=== PATIENT | female | born 1990 | race African-American/Black ===

== ENCOUNTER 2018-09-21 00:43 | Emergency (ER) | payer MEDICAID ==
[~2018-09-21] VITALS: Ht 162.6 cm; Wt 100.0 kg
[2018-09-21 03:06] VITALS: BP 108/61
[2018-09-21 03:59] LABS: BASOPHILS % 0.7 % (0.0-2.0); EOSINOPHILS % 0.8 % (0.0-5.0); HEMATOCRIT. 35.7 % (36.0-48.0); HEMOGLOBIN. 10.9 g/dL (12.0-16.0); LYMPHOCYTES % 31.1 % (20.0-50.0); MEAN CORPUSCULAR VOLUME 71.9 fL (81.0-99.0); MEAN PLATELET VOLUME 8.5 fl (7.4-10.4); MONOCYTES % 4.9 % (2.0-8.0); NEUTROPHILS % 62.5 % (40.0-76.0); PLATELET 333 x1000/uL (130-400); RED BLOOD CELL COUNT 4.96 mill/uL (4.2-5.4); RED CELL DISTRIBUTION WIDTH 14.5 % (11.6-14.6)
[2018-09-21 04:05] LABS: CHLORIDE 112 mEq/L (98-107)
== END 2018-09-21 05:51 | disposition home or self-care (01) ==
LOC: ER 00:43
DX: R07.9 Chest pain, unspecified (principal); F32.9 Major depressive disorder, single episode, unspecified; F41.9 Anxiety disorder, unspecified
CPT/HCPCS: 36415; 71045; 84484; 93005; 99283

== ENCOUNTER 2019-03-28 23:19 | Emergency (ER) | payer MEDICAID ==
[~2019-03-28] VITALS: Ht 162.6 cm; Wt 105.0 kg
[2019-03-29] MEDS ORDERED: OLANZAPINE 5MG TABLET ODT PO ONE (00:15)
[2019-03-29] MEDS ORDERED: LORAZEPAM 1MG TABLET PO ONE (00:15)
[2019-03-29 00:33] LABS: BASOPHILS % 0.9 % (0.0-2.0); EOSINOPHILS % 2.5 % (0.0-5.0); HEMATOCRIT. 36.7 % (36.0-48.0); HEMOGLOBIN. 11.4 g/dL (12.0-16.0); LYMPHOCYTES % 26.9 % (20.0-50.0); MEAN CORPUSCULAR HEMOGLOBIN 22.3 pg (28.0-32.0); MEAN CORPUSCULAR VOLUME 71.7 fL (81.0-99.0); MEAN PLATELET VOLUME 8.2 fl (7.4-10.4); MONOCYTES % 7.2 % (2.0-8.0); NEUTROPHILS % 62.5 % (40.0-76.0); PLATELET 316 x1000/uL (130-400); RED BLOOD CELL COUNT 5.12 mill/uL (4.2-5.4); RED CELL DISTRIBUTION WIDTH 15.6 % (11.6-14.6)
[2019-03-29 00:38] LABS: CHLORIDE 107 mEq/L (98-107)
[2019-03-29 00:42] LABS: ETHANOL BLOOD < 10 mg/dL
[2019-03-29 00:45] LABS: HCG SCREEN NEGATIVE
[2019-03-29 01:31] LABS: CLARITY URINE CLOUDY (CLEAR); COLOR URINE YELLOW (YELLOW); KETONES URINE NEGATIVE (NEGATIVE); LEUKOCYTE ESTERASE URINE 1+ (NEGATIVE); NITRITE URINE NEGATIVE (NEGATIVE); OCCULT BLOOD URINE NEGATIVE (NEGATIVE); PH URINE 5.5 (4.5-8.0); PROTEIN URINE NEGATIVE (NEGATIVE); SPECIFIC GRAVITY URINE 1.011 (1.005-1.030); UROBILINOGEN URINE 0.2 E.U./dL (0.2-1.0)
[2019-03-29 01:41] LABS: *AMPHETAMINES SCREEN URINE NEGATIVE (NEGATIVE); *BARBITURATES SCREEN URINE NEGATIVE (NEGATIVE)
[2019-03-29 01:42] LABS: *BENZODIAZEPINES SCREEN URINE NEGATIVE (NEGATIVE); *COCAINE SCREEN URINE NEGATIVE (NEGATIVE); CANNABINOID URINE SCREEN NEGATIVE (NEGATIVE); METHADONE URINE SCREEN NEGATIVE (NEGATIVE); OPIATES URINE SCREEN NEGATIVE (NEGATIVE); PHENCYCLIDINE URINE SCREEN NEGATIVE (NEGATIVE)
[2019-03-29 09:05] VITALS: BP 117/59
== END 2019-03-29 10:31 | disposition home or self-care (01) ==
LOC: ER 23:19
DX: F32.9 Major depressive disorder, single episode, unspecified (principal); R45.851 Suicidal ideations; J45.909 Unspecified asthma, uncomplicated
CPT/HCPCS: 36415; 80305; 80307; 80320; 80329; 81003; 81025; 84703; 99284; G0480

== ENCOUNTER 2021-06-28 19:06 | Emergency (ER) | payer MEDICAID ==
[~2021-06-28] VITALS: Ht 167.6 cm; Wt 91.0 kg
[~2021-06-28 19:06] MED LIST: IBUP-2028 MT; SULF5DRO LEFTEYE
[2021-06-28] MEDS ORDERED: LORAZEPAM 1MG TABLET PO ONE (19:30)
[2021-06-28] MEDS ORDERED: ACETAMINOPHEN 325MG TABLET PO ONE (19:30)
[2021-06-28 22:00] VITALS: BP 96/29
[2021-06-28] MEDS ORDERED: ACET-2708 MT (23:07)
[2021-06-28] MEDS ORDERED: HYDR-3735 MT (23:07)
== END 2021-06-28 23:22 | disposition home or self-care (01) ==
LOC: ER 19:06
DX: F41.0 Panic disorder [episodic paroxysmal anxiety] (principal); R07.89 Other chest pain; F41.9 Anxiety disorder, unspecified; J45.909 Unspecified asthma, uncomplicated; F32.9 Major depressive disorder, single episode, unspecified
CPT/HCPCS: 71045; 99283

== ENCOUNTER 2021-12-11 05:02 | Emergency (ER) | payer MEDICAID ==
[~2021-12-11] VITALS: Ht 175.3 cm; Wt 112.3 kg
[~2021-12-11 05:02] MED LIST changes: +ACET-2708 MT; +HYDR-3735 MT
[2021-12-11 05:07] VITALS: BP 126/74
== END 2021-12-11 06:08 | disposition left against medical advice (07) ==
LOC: ER 05:02
DX: I63.9 Cerebral infarction, unspecified (principal)
CPT/HCPCS: 99283